=== PATIENT | male | born 1950 ===

== ENCOUNTER 2022-07-31 08:26 | Outpatient (CLI) | payer OTHER | END 2022-07-31 08:27 | disposition home or self-care (01) | LOC: LAB 08:26 | PROVIDERS: ATTEND Specialist | DX: K40.90 Unilateral inguinal hernia, without obstruction or gangrene, not specified as recurrent (principal); D50.9 Iron deficiency anemia, unspecified; N39.0 Urinary tract infection, site not specified; I11.9 Hypertensive heart disease without heart failure; E03.9 Hypothyroidism, unspecified; N40.1 Benign prostatic hyperplasia with lower urinary tract symptoms; E11.9 Type 2 diabetes mellitus without complications; E78.00 Pure hypercholesterolemia, unspecified; R19.5 Other fecal abnormalities; E55.9 Vitamin D deficiency, unspecified; N18.31 Chronic kidney disease, stage 3a ==